=== PATIENT | female | born 1950 | race Caucasian/White ===

== ENCOUNTER 2018-01-09 20:27 | Emergency (ER) | payer MEDICARE ==
[2018-01-09 21:20] LABS: UDS - AMPHET NEGATIVE QUAL (NEGATIVE); UDS - BARB NEGATIVE QUAL (NEGATIVE); UDS - BENZO NEGATIVE QUAL (NEGATIVE); UDS - COCAINE NEGATIVE QUAL (NEGATIVE); UDS - OPIATE NEGATIVE QUAL (NEGATIVE); UDS - PCP NEGATIVE QUAL (NEGATIVE); UDS - THC NEGATIVE QUAL (NEGATIVE)
[2018-01-09 21:30] LABS: HEMATOCRIT 33.7 % (36.0-48.0); HEMOGLOBIN 11.3 g/dL (12-16); MCH 30.3 pg (26.0-34.0); MCHC 33.5 g/dL (31.0-37.0); MCV 90.3 fL (80.0-100.0); MEAN PLATELET VOLUME 11.1 fL (7.4-10.4); RBC 3.73 10x6/uL (4.00-5.40); RDW 14.2 % (11.5-14.5)
[2018-01-09 21:30] LABS: APPEARANCE CLEAR (CLEAR); BILIRUBIN NEGATIVE (NEGATIVE); COLOR YELLOW (YELLOW); GLUCOSE 100 mg/dL (NEGATIVE); KETONE NEGATIVE (NEGATIVE); NITRITE NEGATIVE (NEGATIVE); PROTEIN NEGATIVE (NEGATIVE); UROBILINOGEN NORMAL (NORMAL)
[2018-01-09 21:33] LABS: PLATELET COUNT 24 10x3/uL (130-400); WBC 1.2 10x3/uL (4.8-10.8)
[2018-01-09 21:38] LABS: ALBUMIN 2.7 g/dL (3.4-5.0); ANION GAP 10.2 mmol/L (8-16); BILIRUBIN - TOTAL 0.75 mg/dL (0.2-1.3); CALCIUM 8.1 mg/dL (8.5-10.1); CARBON DIOXIDE 22.5 mmol/L (21.0-32.0); CREATININE - SERUM 1.1 mg/dL (0.6-1.3); POTASSIUM - SERUM 3.7 mmol/L (3.5-5.1); PROTEIN - SERUM 5.9 g/dL (6.4-8.2)
[2018-01-09 22:28] LABS: LYMPHOCYTES 37 % (15-50); NEUTROPHILS 63 % (40-80); PLATELET ESTIMATE DECREASED
[2018-01-10] MEDS ORDERED: ATIVAN0.5 MG PO (00:23)
[2018-01-10] MEDS ORDERED: COLACE100 MG PO (00:24)
[2018-01-10] MEDS ORDERED: FERROUS SULFAT325 MG PO (00:25)
[2018-01-10] MEDS ORDERED: GLIPIZIDE10 MG PO (00:31)
[2018-01-10] MEDS ORDERED: GLUCAGEN1 MG/VIAL IM (00:33)
[2018-01-10] MEDS ORDERED: KEPPRA500 MG PO (00:35)
[2018-01-10] MEDS ORDERED: KRISTALOSE20 G/PKT PO (00:37)
[2018-01-10] MEDS ORDERED: LEVEMIR100 U/M1 SC ×2 (00:38→00:39)
[2018-01-10] MEDS ORDERED: SYNTHROID88 MCG PO (00:40)
[2018-01-10] MEDS ORDERED: MELATONIN 3 MG1 TAB PO (00:41)
[2018-01-10] MEDS ORDERED: MIRALAX17 GM PO (00:42)
[2018-01-10] MEDS ORDERED: OMEPRAZOLE20 M1 PO (00:43)
[2018-01-10] MEDS ORDERED: PRAVACHOL40 MG PO (00:44)
[2018-01-10] MEDS ORDERED: SEROQUEL25 MG PO (00:44)
[2018-01-10] MEDS ORDERED: TOPAMAX25 MG PO (00:45)
[2018-01-10] MEDS ORDERED: ACETAMINOPHEN325 MG PO (00:46)
[2018-01-10] MEDS ORDERED: VITAMIN B-12500 MC1 PO (00:47)
[2018-01-10] MEDS ORDERED: VITAMIN D5000 UNIT PO (00:48)
[2018-01-10] MEDS ORDERED: XIFAXAN550 MG PO (00:49)
[2018-01-10] MEDS ORDERED: ZOLOFT25 MG PO (00:49)
[2018-01-10] MEDS ORDERED: NOVOLOG100 U/M1 SC (04:39)
[2018-01-19 15:50] VITALS: BMI 32.9
== END 2018-01-09 22:47 ==
LOC: D.ER 20:27
PROVIDERS: Family Medicine
DX: F03.90 Unspecified dementia, unspecified severity, without behavioral disturbance, psychotic disturbance, mood disturbance, and anxiety (principal); I10 Essential (primary) hypertension; E11.9 Type 2 diabetes mellitus without complications; D72.819 Decreased white blood cell count, unspecified; D69.6 Thrombocytopenia, unspecified; E03.9 Hypothyroidism, unspecified

== ENCOUNTER 2018-01-09 22:47 | Inpatient (IN) | payer MEDICARE ==
[~2018-01-09] VITALS: Ht 162.6 cm; Wt 86.9 kg
--- NOTE | ~2018-01-09 | PN ---
PATIENT:JENNIFER JOHNSON MEDICAL RECORD: [id number] LOCATION:EDIS Motley113 ADMISSION DATE: 01/09/18 PROGRESS NOTE DATE OF SERVICE: 01/19/2018 SUBJECTIVE: The patient's case was discussed with staff. She has no new complaint. OBJECTIVE: The patient is in good behavioral control and again is denying any thoughts of harming herself or others. Her cognition has improved. ASSESSMENT: No change in diagnoses. PLAN: The patient continues to have ongoing medical problems. Her glucose is elevated. She has had elevated ammonia, decreased white blood count. All of these are beyond my expertise as far as how to address. From a psychiatric standpoint, I do think that there is a problem, she can be discharged at any time. The patient may be returned to the halfway, but I do want her to be cleared by internal medicine and I do want her to either be transferred to the medical floor for further evaluation and treatment of her nonpsychiatric issues or for there to be a clearcut understanding of what needs to be done at the halfway to manage these issues and refer her for appropriate evaluation and treatment of her nonpsychiatric issues. I am going to go ahead and put the discharge orders in and they will be executed pending approval from internal medicine. TRANSINT:[id number] Voice Confirmation ID: [id number] DOCUMENT ID: [id number] ANA ARREAGA MD at 1247 CC: [id number] DICTATION DATE: 01/19/18 1342 FISHING TOOL OPERATOR: 01/19/18 1435 DIS IN 01/19/18 [place] [address] [place] [address]
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
--- NOTE | ~2018-01-09 | PN ---
PATIENT:JENNIFER JOHNSON MEDICAL RECORD: [id number] LOCATION:EDIS Rankin ADMISSION DATE: 01/09/18 PROGRESS NOTE DATE OF SERVICE: 01/13/2018 SUBJECTIVE: No new complaint. OBJECTIVE: The patient is doing reasonably well. She cooperates with staff. She is taking medications as prescribed. She remains in isolation. On exam, mood is euthymic. Affect is bland. Speech is somewhat terse. Content of thought focuses on somatic concerns. Sensorium shows no change. ASSESSMENT: No change in diagnosis. PLAN: 1. Continue all current medications. 2. Continue supportive therapy. TRANSINT:[id number] Voice Confirmation ID: [id number] DOCUMENT ID: [id number] ADA KNIGHT III, MD at 1142 CC: [id number] DICTATION DATE: 01/13/18 1218 CHECKER PRODUCT DESIGN: 01/13/18 1227 ADM IN [place] [address] [place] [id number]
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
--- NOTE | ~2018-01-09 | PN ---
PATIENT:JENNIFER JOHNSON MEDICAL RECORD: [id number] LOCATION:EDIS Motley113 ADMISSION DATE: 01/09/18 PROGRESS NOTE DATE OF SERVICE: 01/18/2018 SUBJECTIVE: The patient's case was discussed with staff. She has no new complaint. OBJECTIVE: The patient continues to be significantly confused. She has an ammonia level of 100 from yesterday. ASSESSMENT: No change in diagnoses. PLAN: I have reviewed the patient's medications. She may need additional adjustments in her medicines, but I do not think there is anything that can be done to significantly improve her cognition as long as she is running an elevated ammonia level. In fact, that is probably what was responsible for some of her behavior problems that precipitated this admission. I have ordered another ammonia level. The treatment is not particularly complicated. One should not take medicines that place stress on the liver or more accurately one should weigh the relative risks and benefits of that carefully since medicines that due stress liver will increase her ammonia. The other part of this would be taking the lactulose to keep the ammonia level down. I am going to take responsibility for the psychiatric medicines and weigh the relative risks and benefits in taking those. Her lifeline representatives will do the same for her nonpsychiatric medicines and will prescribe lactulose at a dose that hopefully will improve this ammonia level if it is possible to improve. I am not entirely clear on what is going on with her from a medical standpoint and what her prognosis is. Obviously anyone who has consistent problems with high ammonia has serious liver disease and I am going to defer those kinds of conclusions to people more qualified, but clearly this woman is sick in a very serious way. Unfortunately, on many levels, the liver disease is also affecting her behavior. It is clear that she has dementia, it is also clear that she almost certainly has a pretty severe cluster B personality disorder. When she becomes a little delirious from the ammonia level, I think it is a combination of circumstances that really make her a difficult person to manage. TRANSINT:[id number] Voice Confirmation ID: [id number] DOCUMENT ID: [id number] ANA ARREAGA MD at 1318 CC: [id number] DICTATION DATE: 01/18/18 1245 INTERNET SALES CONSULTANT: 01/18/18 1259 ADM IN [place] [id number] [place], [place] [id number]
--- NOTE | ~2018-01-09 | PN ---
PATIENT:JENNIFER JOHNSON MEDICAL RECORD: [id number] LOCATION:EDIS Rankin ADMISSION DATE: 01/09/18 PROGRESS NOTE DATE OF SERVICE: 01/12/2018 SUBJECTIVE: The patient's case was discussed with staff. She has no new complaint. OBJECTIVE: The patient is in good behavioral control with limited insight about her condition. She tolerates her medicines well. ASSESSMENT: No change in diagnoses. PLAN: Brief supportive and educational interventions were made. The patient will be started on Aricept at a dose of 5 mg at bedtime to assist with her cognitive impairment. She will be monitored for clinical changes associated with its use. TRANSINT:[id number] Voice Confirmation ID: [id number] DOCUMENT ID: [id number] ANA ARREAGA MD at 1348 CC: [id number] DICTATION DATE: 01/12/18 1525 TAX CREDIT LEASING CONSULTANT: 01/12/18 1658 ADM IN [place] [id number] [place] [id number]
--- NOTE | ~2018-01-09 | PN ---
PATIENT:JENNIFER JOHNSON MEDICAL RECORD: [id number] LOCATION:EDIS Motley113 ADMISSION DATE: 01/09/18 PROGRESS NOTE DATE OF SERVICE: 01/17/2018 SUBJECTIVE: The patient's case was discussed with staff. She has no new complaint. OBJECTIVE: The patient is more confused today. She had to have some pretty basic things repeated to her. She is limited in her insight. She tells me that the year is 1937. When asked back multiple times, she repeats definitively that the year currently is 1937. ASSESSMENT: No change in diagnoses. PLAN: I am going to check the patient's ammonia level. She clearly is different. I know that she has been taking her lactulose, but clearly this is a new problem. If that level is abnormal, it may be necessary that she be transferred to the medical floor internal medicine service as clearly her problems are related primarily to nonpsychiatric issues. If the level is normal, I shall address it in some other way that will require some additional contemplation. TRANSINT:[id number] Voice Confirmation ID: [id number] DOCUMENT ID: [id number] AAN ARREAGA MD at 1224 CC: [id number] DICTATION DATE: 01/17/18 1456 HEARING IMPAIRED ITINERANT TEACHER: 01/17/18 1624 ADM IN [place] [id number] [place] [address]
--- NOTE | ~2018-01-09 | PN ---
PATIENT:JENNIFER JOHNSON MEDICAL RECORD: [id number] LOCATION:EDIS Motley113 ADMISSION DATE: 01/09/18 PROGRESS NOTE DATE OF SERVICE: 01/16/2018 SUBJECTIVE: The patient's case was discussed with staff. She has no new complaint. OBJECTIVE: The patient denies intent to harm herself or others. She generally tolerates her medicines well. ASSESSMENT: No change in diagnoses. PLAN: The patient will be treated with a higher dose of Zoloft. She will be monitored for clinical changes associated with its use. Her long-term prognosis is guarded. I anticipate she can be transitioned out of the hospital soon if this level of improvement is maintained. TRANSINT:[id number] Voice Confirmation ID: [id number] DOCUMENT ID: [id number] ANA ARREAGA MD at 1417 CC: [id number] DICTATION DATE: 01/16/18 1406 COPY CENTER SPECIALIST: 01/16/18 1416 ADM IN [place] [id number] [place] [id number]
[2018-01-10] MEDS ORDERED: ATIVAN0.5 MG PO (00:23)
[2018-01-10] MEDS ORDERED: COLACE100 MG PO (00:24)
[2018-01-10] MEDS ORDERED: FERROUS SULFAT325 MG PO (00:25)
[2018-01-10] MEDS ORDERED: GLIPIZIDE10 MG PO (00:31)
[2018-01-10] MEDS ORDERED: GLUCAGEN1 MG/VIAL IM (00:33)
[2018-01-10] MEDS ORDERED: KEPPRA500 MG PO (00:35)
[2018-01-10] MEDS ORDERED: KRISTALOSE20 G/PKT PO (00:37)
[2018-01-10] MEDS ORDERED: LEVEMIR100 U/M1 SC ×2 (00:38→00:39)
[2018-01-10] MEDS ORDERED: SYNTHROID88 MCG PO (00:40)
[2018-01-10] MEDS ORDERED: MELATONIN 3 MG1 TAB PO (00:41)
[2018-01-10] MEDS ORDERED: MIRALAX17 GM PO (00:42)
[2018-01-10] MEDS ORDERED: OMEPRAZOLE20 M1 PO (00:43)
[2018-01-10] MEDS ORDERED: SEROQUEL25 MG PO (00:44)
[2018-01-10] MEDS ORDERED: PRAVACHOL40 MG PO (00:44)
[2018-01-10] MEDS ORDERED: TOPAMAX25 MG PO (00:45)
[2018-01-10] MEDS ORDERED: ACETAMINOPHEN325 MG PO (00:46)
[2018-01-10] MEDS ORDERED: VITAMIN B-12500 MC1 PO (00:47)
[2018-01-10] MEDS ORDERED: VITAMIN D5000 UNIT PO (00:48)
[2018-01-10] MEDS ORDERED: XIFAXAN550 MG PO (00:49)
[2018-01-10] MEDS ORDERED: ZOLOFT25 MG PO (00:49)
[2018-01-10] MEDS ORDERED: NOVOLOG100 U/M1 SC (04:39)
[2018-01-10 06:15] VITALS: BP 149/82; BMI 30.9
[2018-01-10 07:15] LABS: LDL-HDL RATIO 0.8 ratio (1.5-3.5); THYROID STIMULATING HORMONE 14.3 uIU/mL (0.36-3.74)
[2018-01-10 11:05] VITALS: BP 153/75
[2018-01-10 11:14] VITALS: BMI 31.0
[2018-01-10 19:42] VITALS: BP 131/63
[2018-01-11 09:52] VITALS: BP 136/71
[2018-01-11 10:21] LABS: VITAMIN D 25 HYDROXY 37.9 ng/mL (30.0-100.0)
[2018-01-11 11:18] LABS: FOLATE (FOLIC ACID) - SERUM 10.1 ng/mL (>3.0)
[2018-01-11 20:30] VITALS: BP 114/57
[2018-01-12 10:33] VITALS: BP 120/51
[2018-01-12 21:22] VITALS: BP 140/62
[2018-01-12 21:38] LABS: BASOPHILS 0.6 % (0-2); EOSINOPHILS 4.4 % (0-7); HEMOGLOBIN 11.7 g/dL (12-16); IMMATURE GRANULOCYTES 0.6 % (0-5); LYMPHOCYTES 27.6 % (15-50); MCH 30.2 pg (26.0-34.0); MCHC 33.4 g/dL (31.0-37.0); MCV 90.4 fL (80.0-100.0); MEAN PLATELET VOLUME 11.1 fL (7.4-10.4); MONOCYTES 14.4 % (2-11); NEUTROPHILS 52.4 % (40-80); RBC 3.87 10x6/uL (4.00-5.40); RDW 13.9 % (11.5-14.5)
[2018-01-12 21:41] LABS: PLATELET COUNT 25 10x3/uL (130-400); WBC 1.8 10x3/uL (4.8-10.8)
[2018-01-12 22:14] LABS: ALBUMIN 2.8 g/dL (3.4-5.0); ANION GAP 14.8 mmol/L (8-16); BILIRUBIN - DIRECT 0.29 mg/dL (0.00-0.30); BILIRUBIN - INDIRECT 0.65 mg/dL (0.00-1.00); BILIRUBIN - TOTAL 0.94 mg/dL (0.2-1.3); CALCIUM 8.8 mg/dL (8.5-10.1); CARBON DIOXIDE 20.2 mmol/L (21.0-32.0); CREATININE - SERUM 1.2 mg/dL (0.6-1.3); PROTEIN - SERUM 5.9 g/dL (6.4-8.2); THYROID STIMULATING HORMONE 8.44 uIU/mL (0.36-3.74)
[2018-01-13 09:20] VITALS: BP 121/65
[2018-01-13 20:52] VITALS: BP 137/69
[2018-01-14 10:50] VITALS: BP 110/54
[2018-01-14 20:33] VITALS: BP 123/57
[2018-01-15 19:30] VITALS: BP 124/70
[2018-01-16 07:00] VITALS: BP 132/64
[2018-01-16 19:43] VITALS: BP 142/65
[2018-01-17 21:09] VITALS: BP 135/55
[2018-01-18 12:02] VITALS: BP 144/71
[2018-01-19 02:12] VITALS: BP 164/72
[2018-01-19 10:08] VITALS: BP 152/78
[2018-01-19] MEDS ORDERED: ARICEPT5 MG PO (13:46)
[2018-01-19] MEDS ORDERED: ZOLOFT100 MG PO (13:47)
[2018-01-19 15:50] VITALS: Ht 162.6 cm; Wt 86.9 kg
== END 2018-01-19 18:44 | DRG 57 ==
LOC: D.PSYCH 22:47
PROVIDERS: Psychiatry & Neurology Psychiatry
DX: G30.1 Alzheimer's disease with late onset (principal); F02.81 Dementia in other diseases classified elsewhere, unspecified severity, with behavioral disturbance; I10 Essential (primary) hypertension; G40.909 Epilepsy, unspecified, not intractable, without status epilepticus; E11.9 Type 2 diabetes mellitus without complications; D64.9 Anemia, unspecified; D70.9 Neutropenia, unspecified; E03.9 Hypothyroidism, unspecified; K72.90 Hepatic failure, unspecified without coma; K59.09 Other constipation

== ENCOUNTER 2018-03-18 04:08 | Emergency (ER) | payer MEDICARE ==
[2018-01-19 15:50] VITALS: BMI 32.9
[~2018-03-18 04:08] MED LIST: ACETAMINOPHEN325 MG PO; ARICEPT5 MG PO; ATIVAN0.5 MG PO; COLACE100 MG PO; FERROUS SULFAT325 MG PO; GLIPIZIDE10 MG PO; GLUCAGEN1 MG/VIAL IM; KEPPRA500 MG PO; KRISTALOSE20 G/PKT PO; LEVEMIR100 U/M1 SC; MELATONIN 3 MG1 TAB PO; MIRALAX17 GM PO; NOVOLOG100 U/M1 SC; OMEPRAZOLE20 M1 PO; PRAVACHOL40 MG PO; SEROQUEL25 MG PO; SYNTHROID88 MCG PO; TOPAMAX25 MG PO; VITAMIN B-12500 MC1 PO; VITAMIN D5000 UNIT PO; XIFAXAN550 MG PO; ZOLOFT100 MG PO; ZOLOFT25 MG PO
[2018-03-18 04:48] LABS: BASOPHILS 0.5 % (0-2); EOSINOPHILS 5.9 % (0-7); HEMATOCRIT 31.5 % (36.0-48.0); HEMOGLOBIN 10.5 g/dL (12-16); LYMPHOCYTES 20.4 % (15-50); MCH 30.1 pg (26.0-34.0); MCHC 33.3 g/dL (31.0-37.0); MEAN PLATELET VOLUME 10.6 fL (7.4-10.4); MONOCYTES 11.3 % (2-11); NEUTROPHILS 61.9 % (40-80); RBC 3.49 10x6/uL (4.00-5.40); RDW 14.1 % (11.5-14.5)
[2018-03-18 04:53] LABS: MCV 90.3 fL (80.0-100.0); PLATELET COUNT 33 10x3/uL (130-400); WBC 1.9 10x3/uL (4.8-10.8)
[2018-03-18 05:13] LABS: ALBUMIN 2.5 g/dL (3.4-5.0); CALCIUM 8.5 mg/dL (8.5-10.1); CARBON DIOXIDE 24.4 mmol/L (21.0-32.0); POTASSIUM - SERUM 3.4 mmol/L (3.5-5.1)
[2018-03-18 05:15] LABS: APPEARANCE CLEAR (CLEAR); BACTERIA MANY /hpf (NONE SEEN); BILIRUBIN NEGATIVE (NEGATIVE); COLOR YELLOW (YELLOW); EPITHELIAL CELLS NSEEN /hpf (0-5); GLUCOSE NEGATIVE (NEGATIVE); KETONE NEGATIVE (NEGATIVE); NITRITE POSITIVE (NEGATIVE); PROTEIN NEGATIVE (NEGATIVE); RED CELLS - URINE NONE SEEN /hpf (0-5); UROBILINOGEN NORMAL (NORMAL); WHITE CELLS - URINE 0-5 /hpf (0-5)
== END 2018-03-18 07:40 | disposition home or self-care (01) ==
LOC: D.ER 04:08
PROVIDERS: Family Medicine
DX: J20.9 Acute bronchitis, unspecified (principal); N39.0 Urinary tract infection, site not specified; D72.819 Decreased white blood cell count, unspecified; D69.6 Thrombocytopenia, unspecified; D64.9 Anemia, unspecified; H11.31 Conjunctival hemorrhage, right eye; E11.9 Type 2 diabetes mellitus without complications; I10 Essential (primary) hypertension

== ENCOUNTER 2018-08-23 19:21 | Inpatient (IN) | payer MEDICARE ==
[~2018-08-23] VITALS: Ht 162.6 cm; Wt 81.8 kg
--- NOTE | ~2018-08-23 | PN ---
PATIENT:JENNIFER JOHNSON MEDICAL RECORD: [id number] LOCATION:EDIS GonzalezMilli112 ADMISSION DATE: 08/23/18 PROGRESS NOTE DATE OF SERVICE: 08/25/2018 SUBJECTIVE: The patient's case was discussed with staff. She has no new complaint. OBJECTIVE: The patient is in good behavioral control with limited insight about her condition. She does tolerate her medicines well. She is compliant with her lactulose. She says that she does not want to now. She is clearly very demented, but I think she is also depressed. I am going to discontinue her Zoloft and we will start her on Effexor for its antidepressant effect. I am also going to check some baseline labs. She is not eating well. TRANSINT:[id number] Voice Confirmation ID: [id number] DOCUMENT ID: [id number] ANA ARREAGA MD at 0926 CC: [id number] DICTATION DATE: 08/25/18 1047 FOOD SERVICE ASSOCIATE: 08/25/18 1106 ADM IN [place] [address] [place] [address]
--- NOTE | ~2018-08-23 | PN ---
PATIENT:JENNIFER JOHNSON MEDICAL RECORD: [id number] LOCATION:EDIS GonzalezMilli112 ADMISSION DATE: 08/23/18 PROGRESS NOTE DATE OF SERVICE: 08/26/2018 SUBJECTIVE: The patient's case was discussed with staff. She has no new complaint. OBJECTIVE: The patient continues to take lactulose and to run an elevated ammonia level. I have started her on a low dose of an antidepressant. I am reluctant to increase it very aggressively given her liver condition. She denies that she wants to hurt herself today. ASSESSMENT: No change in diagnoses. PLAN: Current medicines and therapies have been reviewed and will be maintained. Brief supportive and educational interventions were made. TRANSINT:[id number] Voice Confirmation ID: [id number] DOCUMENT ID: [id number] ANA ARREAGA MD at 1054 CC: [id number] DICTATION DATE: 08/26/18 0941 COLLAR POINTER: 08/26/18 1105 ADM IN [place] [address] [place] [address]
--- NOTE | ~2018-08-23 | PN ---
PATIENT:JENNIFER JOHNSON MEDICAL RECORD: [id number] LOCATION:EDIS Motley112 ADMISSION DATE: 08/23/18 PROGRESS NOTE DATE OF SERVICE: 08/27/2018 SUBJECTIVE: The patient's case was discussed with staff. She has no new complaint. OBJECTIVE: The patient denies that she wants to . She is not eating adequately though. She says she is just simply not hungry. Her oral intake is significantly low. ASSESSMENT: No change in diagnoses. PLAN: I am going to give the patient Megace to assist with appetite stimulation. She is continuing to run an elevated ammonia level. TRANSINT:[id number] Voice Confirmation ID: [id number] DOCUMENT ID: [id number] ANA ARREAGA MD at 1417 CC: [id number] DICTATION DATE: 08/27/18 1112 ADMISSIONS SUPERVISOR: 08/27/18 1251 ADM IN [facility] [address] [place] [address]
--- NOTE | ~2018-08-23 | PN ---
PATIENT:JENNIFER JOHNSON MEDICAL RECORD: [id number] LOCATION:EDIS Motley112 ADMISSION DATE: 08/23/18 PROGRESS NOTE DATE OF SERVICE: 08/28/2018 SUBJECTIVE: The patient's case was discussed with staff. She has no new complaint. OBJECTIVE: The patient denies intent to harm herself or others. She generally tolerates her medicines well. Eye contact is fair. ASSESSMENT: No change in diagnoses. PLAN: The patient is not suicidal. She is not progressing medically and is certainly not in acute danger to herself. Based on this, she is going to be returned to the residential and hospice care will be resumed. Her prognosis is exceedingly poor from a medical standpoint, but I do not think she will attempt to harm herself. TRANSINT:[id number] Voice Confirmation ID: [id number] DOCUMENT ID: [id number] ANA ARREAGA MD at 1223 CC: [id number] DICTATION DATE: 08/28/18 142 LOAN INTERVIEWER MORTGAGE: 08/28/18 1514 DIS IN 08/28/18 [facility] [address] [place] [address]
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
--- NOTE | ~2018-08-23 | DS ---
PATIENT:JENNIFER JOHNSON :54 MEDICAL RECORD: [id number] DISCHARGE SUMMARY ADMISSION DATE: 08/23/18 DISCHARGE DATE: 08/28/18 IDENTIFYING DATA: The patient is 68 years old and she was admitted to the hospital on a voluntary basis. The patient was living in a local [place] [facility] and expressed a repeated desire to kill herself. The patient was depressed and unhappy. She was actually already receiving palliative care, but was making these suicidal statements that were distressing to the [place] [facility] staff. She was actually in receiving the palliative care because of end-stage dementia and liver failure. She was argumentative and disorganized with the nursing staff. They were unable to redirect her. She was confused at times and circumstantial. There was no reported history of drug or alcohol abuse. She apparently does have a history of epilepsy. HOSPITAL COURSE: The patient was admitted to the hospital and fully evaluated from both a medical, psychological, and social standpoint. She was treated with both antidepressant and mood stabilizing medicines. She unfortunately continued to worsen medically with seriously elevated ammonia levels. She denied wanting to hurt herself. She was manageable in a behavioral sense and was subsequently transitioned back to the [place] [facility] for [facility] care. DISCHARGE DIAGNOSES: AXIS I: 1. Senile dementia of the Alzheimer's type with behavioral disturbances. 2. Major depression, moderate severity, recurrent without psychotic features. AXIS II: None. AXIS III: Hypertension, seizure disorder, diabetes, liver failure, neutropenia. AXIS IV: Severe stressors. AXIS V: Global assessment of functioning is 30. PLAN: At the time of discharge, the patient was not acutely or directly dangerous to herself or others. She certainly was severely impaired cognitively and her long-term prognosis is exceedingly poor given her liver failure and the end-stage dementia. She will be given comfort care measures. TRANSINT:[id number] Voice Confirmation ID: [id number] DOCUMENT ID: [id number] ANA ARREAGA MD at 0922 CC: [id number] DICTATION DATE: 08/29/18 1228 STAMPER BLOCKER: 08/30/18 0303 DIS IN 08/28/18 [facility] [address] [place] [address]
[2018-08-23 19:00] VITALS: BP 136/70
[2018-08-23] MEDS ORDERED: LEVEMIR IN100 UNITS/ SC (20:17)
[2018-08-23] MEDS ORDERED: KEPPRA750 MG PO (20:18)
[2018-08-23] MEDS ORDERED: SYNTHROID75 MCG PO (20:18)
[2018-08-23] MEDS ORDERED: ATIVAN0.5 MG PO (20:20)
[2018-08-23] MEDS ORDERED: ZOLOFT25 MG PO (20:25)
[2018-08-23 23:34] VITALS: BP 136/70; BMI 30.9
[2018-08-24 06:46] LABS: BASOPHILS 0.4 % (0-2); HEMATOCRIT 40.9 % (36.0-48.0); HEMOGLOBIN 14.6 g/dL (12-16); IMMATURE GRANULOCYTES 0.2 % (0-5); MCH 32.1 pg (26.0-34.0); MCHC 35.7 g/dL (31.0-37.0); MCV 89.9 fL (80.0-100.0); MEAN PLATELET VOLUME 11.1 fL (7.4-10.4); MONOCYTES 7.2 % (2-11); NEUTROPHILS 63.2 % (40-80); RBC 4.55 10x6/uL (4.00-5.40); RDW 16.2 % (11.5-14.5); WBC 5.6 10x3/uL (4.8-10.8)
[2018-08-24 06:51] LABS: ALBUMIN 3.1 g/dL (3.4-5.0); ANION GAP 16.6 mmol/L (8-16); BILIRUBIN - TOTAL 5.31 mg/dL (0.2-1.3); CALCIUM 9.1 mg/dL (8.5-10.1); CARBON DIOXIDE 20.9 mmol/L (21.0-32.0); CHOL - HDL RATIO 3.3 ratio (2.3-4.1); CREATININE - SERUM 1.1 mg/dL (0.6-1.3); LDL-HDL RATIO 1.9 ratio (1.5-3.5); POTASSIUM - SERUM 3.5 mmol/L (3.5-5.1); PROTEIN - SERUM 6.9 g/dL (6.4-8.2); THYROID STIMULATING HORMONE 25.16 uIU/mL (0.36-3.74)
[2018-08-24 06:56] LABS: PLATELET COUNT 44 10x3/uL (130-400)
[2018-08-24 08:51] VITALS: BP 136/70
[2018-08-24 19:25] VITALS: BP 136/70
[2018-08-24 20:06] VITALS: BP 142/74
[2018-08-25 06:18] LABS: RAPID PLASMA REAGIN Non Reactive (Non Reactive); VITAMIN D 25 HYDROXY 50.3 ng/mL (30.0-100.0)
[2018-08-25 09:18] LABS: FOLATE (FOLIC ACID) - SERUM 10.9 ng/mL (>3.0)
[2018-08-25 10:05] VITALS: BP 122/74
[2018-08-25 12:16] LABS: BASOPHILS 0.4 % (0-2); EOSINOPHILS 3.3 % (0-7); HEMATOCRIT 35.7 % (36.0-48.0); HEMOGLOBIN 12.8 g/dL (12-16); IMMATURE GRANULOCYTES 0.2 % (0-5); LYMPHOCYTES 15.2 % (15-50); MCH 32.1 pg (26.0-34.0); MCHC 35.9 g/dL (31.0-37.0); MCV 89.5 fL (80.0-100.0); MEAN PLATELET VOLUME 11.6 fL (7.4-10.4); NEUTROPHILS 67.9 % (40-80); RBC 3.99 10x6/uL (4.00-5.40); RDW 16.5 % (11.5-14.5); WBC 4.6 10x3/uL (4.8-10.8)
[2018-08-25 12:18] LABS: PLATELET COUNT 34 10x3/uL (130-400)
[2018-08-25 12:38] LABS: ALBUMIN 2.8 g/dL (3.4-5.0); ANION GAP 16.1 mmol/L (8-16); BILIRUBIN - TOTAL 5.3 mg/dL (0.2-1.3); CALCIUM 8.8 mg/dL (8.5-10.1); CREATININE - SERUM 1.2 mg/dL (0.6-1.3); POTASSIUM - SERUM 3.1 mmol/L (3.5-5.1); PROTEIN - SERUM 6.2 g/dL (6.4-8.2); THYROID STIMULATING HORMONE 18.79 uIU/mL (0.36-3.74)
[2018-08-25 20:10] VITALS: BP 140/67
[2018-08-26 06:06] LABS: ALBUMIN 2.7 g/dL (3.4-5.0); BILIRUBIN - DIRECT 0.84 mg/dL (0.00-0.30); BILIRUBIN - INDIRECT 3.14 mg/dL (0.00-1.00); BILIRUBIN - TOTAL 3.98 mg/dL (0.2-1.3); PROTEIN - SERUM 5.9 g/dL (6.4-8.2)
[2018-08-26 09:15] VITALS: BP 127/64
[2018-08-26 19:32] VITALS: BP 124/76
[2018-08-26 20:23] VITALS: Ht 162.6 cm; Wt 81.8 kg
[2018-08-27 08:00] VITALS: BP 114/65
[2018-08-27 13:06] LABS: BASOPHILS 1.1 % (0-2); EOSINOPHILS 4.4 % (0-7); HEMATOCRIT 34.8 % (36.0-48.0); HEMOGLOBIN 12.3 g/dL (12-16); IMMATURE GRANULOCYTES 0.3 % (0-5); MCH 32.2 pg (26.0-34.0); MCHC 35.3 g/dL (31.0-37.0); MCV 91.1 fL (80.0-100.0); MEAN PLATELET VOLUME 11.3 fL (7.4-10.4); MONOCYTES 15.2 % (2-11); RBC 3.82 10x6/uL (4.00-5.40); RDW 17.1 % (11.5-14.5); WBC 3.6 10x3/uL (4.8-10.8)
[2018-08-27 13:08] LABS: PLATELET COUNT 39 10x3/uL (130-400)
[2018-08-27 19:54] VITALS: BP 102/48
[2018-08-28 07:00] VITALS: BP 142/64
[2018-08-28] MEDS ORDERED: EFFEXOR37.5 MG PO (07:36)
[2018-08-28] MEDS ORDERED: CHRONULAC30 ML PO (07:36)
[2018-08-28] MEDS ORDERED: NEUTRA-PHOS PAC1 PK1 PO (07:38)
[2018-08-28] MEDS ORDERED: POTASSIUM10 MEQ/100 IV (07:39)
[2018-08-28] MEDS ORDERED: K-DUR20 MEQ PO (07:39)
[2018-08-28] MEDS ORDERED: POTASSIUM20 MEQ/101 IV (07:39)
[2018-08-28] MEDS ORDERED: ROBITUSSIN DM 110 ML PO (07:40)
[2018-08-28] MEDS ORDERED: Chloraseptic Spray [ TOPICAL (07:40)
[2018-08-28] MEDS ORDERED: GENTAK3.5 GM EACH EYE (07:40)
[2018-08-28] MEDS ORDERED: MAG-OX 400 MG400 MG PO (07:41)
[2018-08-28] MEDS ORDERED: MEGACE40 MG PO (07:42)
[2018-08-28] MEDS ORDERED: SYNTHROID112 MCG PO (07:42)
== END 2018-08-28 11:30 | disposition home health service (06) | DRG 57 ==
LOC: D.PSYCH 19:21
PROVIDERS: Family Medicine; Legal Medicine; Psychiatry & Neurology Psychiatry
DX: G30.1 Alzheimer's disease with late onset (principal); F02.81 Dementia in other diseases classified elsewhere, unspecified severity, with behavioral disturbance; F33.1 Major depressive disorder, recurrent, moderate; R45.851 Suicidal ideations; E03.9 Hypothyroidism, unspecified; I10 Essential (primary) hypertension; G40.909 Epilepsy, unspecified, not intractable, without status epilepticus; E11.9 Type 2 diabetes mellitus without complications; K72.90 Hepatic failure, unspecified without coma; D70.9 Neutropenia, unspecified; D46.9 Myelodysplastic syndrome, unspecified; H10.9 Unspecified conjunctivitis; K59.00 Constipation, unspecified; E87.6 Hypokalemia; D69.6 Thrombocytopenia, unspecified; R26.9 Unspecified abnormalities of gait and mobility; K21.9 Gastro-esophageal reflux disease without esophagitis; E55.9 Vitamin D deficiency, unspecified; J06.9 Acute upper respiratory infection, unspecified; D64.9 Anemia, unspecified